=== PATIENT | male | born 1945 | race Caucasian/White ===

== ENCOUNTER 2018-03-16 09:31 | Emergency (ER) | payer OTHER ==
[~2018-03-16] VITALS: Ht 172.7 cm; Wt 138.3 kg
[~2018-03-16 09:31] MED LIST: .; ALFUZOSIN HCL10 MG PO; ASPIRIN EC81 M1 PO; ASPIRIN81 MG PO; BUMETANIDE0.25 MG/1 PO; COUMADIN; COUMADIN 4 MG TA4 M1 PO; CYMBALTA20 MG PO; DARVOCET A5001 EAC1 PO; DULCOLAX STOOL100 MG PO; DURAGESIC1 EAC2; FAMOTIDINE20 MG PO; FENTANYL PA25 MCG/HR TP; FISH OIL PO; FLEXERIL PO; FLOMAX; FLOMAX PO; FUROSEMIDE 80 M80 M1 PO; GABAPENTIN300 MG PO; HUMALOG PE100 UNIT/1 SUBQ; HUMALOG PE100 UNIT/M SUBQ; HUMALOG100 UNIT/1; HUMALOG100 UNIT/1 SQ; HYDROCODON-ACE1 EAC5; HYDROCODON-ACE1 EAC5 PO; HYDROCODONE-AP1 EAC6 PO; IMDUR 30 MG TAB30 M1 PO; ISOSORBIDE MONO60 M1 PO; K-DUR 20 MEQ T20 MEQ PO; K-PHOS NEUTRAL250 MG PO; LANTUS SC; LANTUS SUBQ; LASIX 80 MG TAB80 MG OR; LIPITOR40 MG PO; LISINOPRIL10 MG PO; METOLAZONE 2.52.5 MG PO; METOPROLOL SUCC50 MG PO; MIRALAX255 GM PO; NEURONTIN 300300 M1 PO; NITROGLYCERIN0.4 MG SL; NIZATIDINE150 MG PO; OMACOR1 G1 PO; POTASSIUM CHLO20 ME1 PO; POTASSIUM OR; ROXICODONE5 MG PO; SYNTHROID25 MCG PO; TAMSULOSIN HCL0.4 M1 PO; TOPROL XL25 MG PO; TOPROL XL50 MG PO; TRAMADOL 50 MG50 MG PO; TRAZODONE HCL50 MG PO; ULORIC40 MG PO; ULORIC80 MG PO; ULTRAM 50MG TAB50 MG PO; WARFARIN; [UNRECOGNIZED DRUG - OTHER] OR; [UNRECOGNIZED DRUG - OTHER] PO
[2018-03-16] MEDS ORDERED: PERCOCET 7.5-31 EACH PO ×2 (09:40→11:07)
[2018-03-16] MEDS ORDERED: LASIX 40 MG TAB40 M2 PO (09:40)
[2018-03-16] MEDS ORDERED: PROTONIX40 M1 PO (09:41)
[2018-03-16] MEDS ORDERED: ALLOPURINOL 10100 M1 PO (09:41)
[2018-03-16] MEDS ORDERED: ULORIC80 MG PO (09:41)
[2018-03-16] MEDS ORDERED: PROBIOTIC1 EAC1 PO (09:48)
[2018-03-16] MEDS ORDERED: FISH OIL 1,001000 M2 PO (09:48)
[2018-03-16] MEDS ORDERED: ATORVASTATIN CA40 MG PO (09:48)
[2018-03-16] MEDS ORDERED: ELIQUIS2.5 MG PO (09:48)
[2018-03-16 10:25] LABS: ABSOLUTE NEUTROPHILS 4.2 thou/uL (1.4-8.2); BASOPHILS 0.6 % (0.0-2.0); HEMATOCRIT 35.5 % (42.0-52.0); HEMOGLOBIN 11.8 gm/dL (14.0-18.0); LYMPHOCYTES 20.6 % (24.0-44.0); MCH 30.8 pg (26.0-34.0); MCHC 33.1 g/dL (28.0-37.0); MONOCYTES 8.9 % (1.0-8.0); PLATELET COUNT 127 thou/uL (150-400); POLYS 65.9 % (36.0-66.0); RBC 3.82 mil/uL (4.50-6.00); RDW 16.6 % (10.5-14.5); WBC 6.5 thou/uL (4.0-11.0)
[2018-03-16 10:45] LABS: CALCIUM 9.1 mg/dL (8.5-10.1); CREATININE 2.2 mg/dL (0.7-1.3); POTASSIUM 5.6 mmol/L (3.5-5.1)
== END 2018-03-16 11:35 | disposition home or self-care (01) ==
LOC: ER 09:31
PROVIDERS: Emergency Medicine
DX: S80.12XA Contusion of left lower leg, initial encounter (principal); M79.89 Other specified soft tissue disorders; E87.5 Hyperkalemia; N28.9 Disorder of kidney and ureter, unspecified; I10 Essential (primary) hypertension; E78.00 Pure hypercholesterolemia, unspecified; E66.01 Morbid (severe) obesity due to excess calories; E11.40 Type 2 diabetes mellitus with diabetic neuropathy, unspecified; I48.91 Unspecified atrial fibrillation; Z95.5 Presence of coronary angioplasty implant and graft; Z85.46 Personal history of malignant neoplasm of prostate; Z90.49 Acquired absence of other specified parts of digestive tract; Z90.89 Acquired absence of other organs; Z86.73 Personal history of transient ischemic attack (TIA), and cerebral infarction without residual deficits; Z88.1 Allergy status to other antibiotic agents; Z79.4 Long term (current) use of insulin; Z88.2 Allergy status to sulfonamides; W18.2XXA Fall in (into) shower or empty bathtub, initial encounter; Y93.E1 Activity, personal bathing and showering; Y92.002 Bathroom of unspecified non-institutional (private) residence as the place of occurrence of the external cause; Y99.8 Other external cause status